=== PATIENT | male | born 1935 ===

== ENCOUNTER 2017-09-13 09:49 | Emergency (ER) | payer MEDICARE, OTHER ==
[2017-09-13 10:43] VITALS: BP 162/72
--- NOTE | 2017-09-13 11:47 | UC ---
Throat Pain/Nasal Evans HPI - HPI Summary HPI Summary: onset of malaise and nasal congestion morning of 09/11; concerned about possible flu. Has no fever, little cough, no headache, and O2 sats and RR are normal. Returned from travel 09/11, away for 3 weeks. Family members have flu, but his sx began before he returned home, and were resolved before his return. - History of Current Complaint Chief Complaint: UCRespiratory Stated Complaint: FLU SYMPTOMS Time Seen by Provider: 09/13/17 11:29 Hx Obtained From: Patient Onset/Duration: Gradual Onset, Lasting Days - 3 Severity: Moderate Pain Intensity: 0 Cough: None Associated Signs & Symptoms: Positive: Nasal Discharge - Allergies/Home Medications Allergies/Adverse Reactions: Allergies Allergy/AdvReac Type Severity Reaction Status Date / Time celecoxib [From Celebrex] Allergy Unknown HALLUCINATIONS/ Verified 09/13/17 10: 29 NAUSEA Home Medications: Home Medications Aspirin Low Dose CHEW TAB* [Aspirin Low Dose TAB*] 81 mg PO DAILY 09/13/17 [ History Confirmed 09/13/17] Levothyroxine TAB* [Synthroid TAB*] 100 mcg PO DAILY 09/13/17 [History Confirmed 09/13/17] Losartan Potassium 100 mg PO DAILY 09/13/17 [History Confirmed 09/13/17] Multivitamin [Multivitamins] 1 cap PO DAILY 09/13/17 [History Confirmed 09/13/17 ] Omeprazole CAP* [Prilosec CAP* 20 MG] 20 mg PO DAILY 09/13/17 [History Confirmed 09/13/17] Phenylephrine/Dm/Acetaminop/GG [Vicks Dayquil Severe Cold] 1 tab PO PRN [History] Pravastatin (NF) [Pravachol (NF)] 20 mg PO DAILY 09/13/17 [History Confirmed ] PMH/Surg Hx/FS Hx/Imm Hx - Additional Past Medical History Additional PMH: obesity surgery for cervical stenosis about 6 weeks ago. Endocrine History: Hypothyroidism GI/ History: Gastroesophageal Reflux - Surgical History Surgical History: Yes Surgery Procedure, Year, and Place: CERVICAL DISC REPLACEMENT. BACK SURGERY- SEVERAL. LEFT TKR - Family History Known Family History: Positive: None - Social History Occupation: Retired Lives: With Family Alcohol Use: Rare Substance Use Type: None Smoking Status (MU): Former Smoker Type: Cigarettes When Did the Patient Quit Smoking/Using Tobacco: 30 YEARS [place] Review of Systems Constitutional: Fatigue Skin: Negative Eyes: Negative ENT: Nasal Discharge Respiratory: Negative Cardiovascular: Negative Gastrointestinal: Negative Genitourinary: Negative Motor: Negative Neurovascular: Negative Musculoskeletal: Negative Neurological: Negative Psychological: Negative Is Patient Immunocompromised?: No All Other Systems Reviewed And Are Negative: Yes Physical Exam Triage Information Reviewed: Yes Appearance: Ill-Appearing - mild congestion Vital Signs: Initial Vital Signs Temp 98.1 F 09/13/17 10:33 Pulse 67 09/13/17 10:33 Resp 20 09/13/17 10:33 BP 162/72 09/13/17 10:33 Pulse Ox 96 09/13/17 10:33 Eyes: Positive: Conjunctiva Clear ENT: Positive: Pharynx normal, TMs normal Neck: Positive: No Lymphadenopathy, Other: - well healed scar left anterior neck Respiratory: Positive: Lungs clear, Normal breath sounds Cardiovascular: Positive: RRR, No Murmur Neurological Exam: Normal Psychological Exam: Normal Skin Exam: Normal Diagnostics - Laboratory Diagnostic Studies Completed/Ordered: Rapid flu a and b negative Throat Pain/Nasal Course/Dx - Course Course Of Treatment: symptomatic treatment of URI - Differential Dx/Diagnosis Differential Diagnosis/HQI/PQRI: Influenza, Laryngitis Provider Diagnoses: URI Discharge - Discharge Plan Condition: Stable Disposition: HOME Patient Education Materials: Upper Respiratory Infection (ED) Referrals: Faraz Fernandez MD [Primary Care Provider] - Additional Instructions: Increase rest and fluids, but return for evaluation if you become short of breath or develop a fever. Flu A and B testing was negative today.
== END 2017-09-13 11:52 | disposition home or self-care (01) ==
LOC: UCCORT 09:49
DX: J06.9 Acute upper respiratory infection, unspecified (principal); Z88.8 Allergy status to other drugs, medicaments and biological substances; E03.9 Hypothyroidism, unspecified; K21.9 Gastro-esophageal reflux disease without esophagitis; Z87.891 Personal history of nicotine dependence
CPT/HCPCS: 87502; 99201; G0463